=== PATIENT | female | born 1970 | race American Indian/Alaskan Native ===

== ENCOUNTER 2020-08-04 10:48 | Outpatient (CLI) | payer BC ==
--- NOTE | 2020-08-04 13:31 | Mammography Report ---
LEFT DIGITAL DIAGNOSTIC MAMMOGRAM WITH CAD CONVENTIONAL, 08/04/2020 LEFT LIMITED BREAST ULTRASOUND CLINICAL INFORMATION / INDICATION: Patient presents as a callback from screening mammogram for furthe r evaluation of an asymmetric density in the left breast. ABNORMAL MAMMO R92.8 TECHNIQUE: Digital left mammographic imaging was performed. Spot compression views were obtained. Queen ited ultrasound was performed. This examination was interpreted with the benefit of Computer-Aided De tection (CAD) analysis. COMPARISON: Prior outside mammogram 06/10/2020 FINDINGS: Breast Density: The breasts are heterogeneously dense, which may obscure small masses. MAMMOGRAPHIC FINDINGS: The previously described asymmetric density in the superior left breast, middl e depth, is less conspicuous on additional views, suggesting overlapping fibroglandular tissue. There is an additional approximately 2 cm focal asymmetric density in the far posterior 3 to 4:00 position of the left breast on additional views, likely representing benign post reduction change, though tar geted ultrasound was performed for further evaluation. ULTRASOUND FINDINGS: Targeted ultrasound evaluation was performed of the area of interest. Targeted ultrasound was performed of the superior and lateral left breast. There is an incidental 6 mm benign cyst in the 5:00 position located 4 cm from the nipple. There is no sonographic abnormality to corre spond with the previously described mammographic findings, confirming that these represent overlappin g fibroglandular tissue/benign post reduction change. IMPRESSION: 1. The previously described asymmetric density is less conspicuous on additional views and without so nographic correlate, compatible with overlapping fibroglandular tissue. No suspicious mammographic or sonographic abnormality identified. Follow up recommendation: Back to schedule. BI-RADS Category 2: Benign. A "normal" or negative report should not discourage follow up or biopsy of a clinically significant f inding. A written summary of these findings will be mailed to the patient. The patient will be entered into a mammography reporting system which will generate a reminder letter for the patient's next appointmen t at the appropriate interval. According to the [employer], yearly mammograms are recommended starting at age 40 and continuing as long as a woman is in good health. Breast MRI is recommended for women with an teofilo roximately 20-25% or greater lifetime risk of breast cancer, including women with a strong family his tory of breast or ovarian cancer and women who have been treated for Hodgkin's disease. Signer Name: Klaudia Cornejo MD Signed: 08/04/2020 1:27 PM Workstation Name: [email or web address]
== END 2020-08-04 10:49 | disposition home or self-care (01) ==
LOC: SPVWC 10:48
PROVIDERS: ATTEND Internal Medicine
DX: N60.02 Solitary cyst of left breast (principal); R92.8 Other abnormal and inconclusive findings on diagnostic imaging of breast